=== PATIENT | female | born 1980 | race Caucasian/White ===

== ENCOUNTER 2018-12-09 10:51 | Emergency (ER) | payer MEDICAID ==
[~2018-12-09] VITALS: Ht 170.2 cm; Wt 74.8 kg
[2018-12-09 10:52] VITALS: BP_SYST 145
--- NOTE | 2018-12-09 12:24 | NUR ---
BROUGHT BACK TO BED #8 AND TRIAGED. REPORT GIVEN TO EMILY
--- NOTE | 2018-12-09 12:49 | NUR ---
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
--- NOTE | 2018-12-09 13:07 | NUR ---
Patient given written and verbal discharge instructions and verbalizes understanding. ER MD Mann discussed with patient the results and treatment provided. Patient in stable condition. ID arm band removed. Rx of Albuterol, Tylenol. Augmentin given. Patient educated on pain management and to follow up with PMD. Pain Scale 0. Opportunity for questions provided and answered. Medication side effect fact sheet provided.
[2018-12-09 13:09] VITALS: BP_SYST 139
== END 2018-12-09 13:07 | disposition home or self-care (01) ==
LOC: SED 10:51
DX: J32.9 Chronic sinusitis, unspecified (principal); J40 Bronchitis, not specified as acute or chronic
CPT/HCPCS: 71046-TC; 81025; 99283